=== PATIENT | female | born 1995 | race Caucasian/White ===

== ENCOUNTER 2016-12-23 03:28 | Emergency (ER) | payer OTHER ==
[~2016-12-23] VITALS: Ht 149.8 cm
[~2016-12-23 03:28] MED LIST: ATIVAN1 MG PO; BIRTH CONTROL1 EAC1; ROXICET ORAL SOL5 ML PO; ZOFRAN4 MG PO
[2016-12-23] MEDS ORDERED: CELEXA10 MG PO (03:43)
[2016-12-23] MEDS ORDERED: SEASONIQUE1 TAB PO (03:44)
[2016-12-23 04:07] LABS: BASO % 0.6 % (0.0-1.0); EOS # 0.1 10*3/uL (0.0-0.4); EOS % 1.4 % (1.0-4.0); HEMATOCRIT 47.8 % (37.0-47.0); HEMOGLOBIN 16.8 g/dl (12.0-16.0); LYMPH # 1.1 10*3/uL (1.3-4.4); LYMPH % 16.2 % (27.0-41.0); MEAN CELL VOLUME 89.5 fl (81.0-99.0); MEAN CORPUSCULAR HGB 31.5 pg (27.0-31.0); MEAN CORPUSCULAR HGB CONC 35.1 g/dl (33.0-37.0); MEAN PLATELET VOLUME 9.6 fl (9.6-12.3); MONO # 0.9 10*3/uL (0.1-1.0); MONO % 13.8 % (3.0-9.0); NEUT # 4.5 10*3/uL (2.3-7.9); NEUT % 67.7 % (47.0-73.0); PLATELET COUNT AUTOMATED 224 10*3/uL (130-400); RED BLOOD COUNT 5.34 10*6/uL (4.10-5.10); RED CELL DISTRI WIDTH 12.7 % (0-14.5); WHITE BLOOD COUNT 6.6 10*3/uL (4.8-10.8)
[2016-12-23 04:18] LABS: BUN 5 mg/dl (7-24); CARBON DIOXIDE 21 mmol/L (21-32); CHLORIDE 111 mmol/L (98-107); EST GLOM FILT AFRICAN AMERICAN > 60 ml/min; GLUCOSE 104 mg/dL (65-99); POTASSIUM 3.4 mmol/L (3.5-5.1); SODIUM 143 mmol/L (136-145)
[2016-12-23 04:24] LABS: BILIRUBIN NEGATIVE (NEGATIVE); BLOOD NEGATIVE (NEGATIVE); CLARITY CLEAR (CLEAR); COLOR YELLOW (YELLOW); GLUCOSE NEGATIVE (NEGATIVE); KETONE NEGATIVE (NEGATIVE); LEUKO ESTERASE NEGATIVE (NEGATIVE); NITRITE NEGATIVE (NEGATIVE); PH 5.5 (5.0-9.0); PROTEIN NEGATIVE (NEGATIVE); SPECIFIC GRAVITY <= 1.005 (1.005-1.030); UROBILINOGEN 0.2 E.U./dl (0.2-1.0)
[2016-12-23] MEDS ORDERED: LOMOTIL 0.025 M1 TA1 PO ×3 (04:36→06:28)
[2016-12-23 04:38] LABS: BACTERIA TRACE; EPITHELIAL CELLS 0-2; RBC 0-2 rbc/hpf (0-2); URINE REFLEX COMMENT NO (NO); WBC 0-2 wbc/hpf (0-5)
[2016-12-23] MEDS ORDERED: ZOFRAN ODT4 MG SL (06:28)
[2016-12-23] MEDS ORDERED: ZITHROMAX250 MG PO (06:46)
== END 2016-12-23 06:58 | disposition home or self-care (01) ==
LOC: ED 03:28
PROVIDERS: Emergency Medicine Emergency Medical Services
DX: K52.9 Noninfective gastroenteritis and colitis, unspecified (principal); H66.91 Otitis media, unspecified, right ear; E86.0 Dehydration; Z88.0 Allergy status to penicillin; Z79.899 Other long term (current) drug therapy

== ENCOUNTER 2017-03-13 04:26 | Emergency (ER) | payer OTHER ==
[~2017-03-13] VITALS: Ht 180.3 cm; Wt 49.9 kg
[~2017-03-13 04:26] MED LIST changes: +CELEXA10 MG PO; +LOMOTIL 0.025 M1 TA1 PO; +SEASONIQUE1 TAB PO; +ZITHROMAX250 MG PO; +ZOFRAN ODT4 MG SL
[2017-03-13 05:18] LABS: HEMATOCRIT 45.1 % (37.0-47.0); HEMOGLOBIN 15.6 g/dl (12.0-16.0); MEAN CELL VOLUME 88.6 fl (81.0-99.0); MEAN CORPUSCULAR HGB 30.6 pg (27.0-31.0); MEAN CORPUSCULAR HGB CONC 34.6 g/dl (33.0-37.0); MEAN PLATELET VOLUME 9.4 fl (9.6-12.3); PLATELET COUNT AUTOMATED 224 10*3/uL (130-400); RED BLOOD COUNT 5.09 10*6/uL (4.10-5.10); RED CELL DISTRI WIDTH 12.4 % (0-14.5); WHITE BLOOD COUNT 3.7 10*3/uL (4.8-10.8)
[2017-03-13 05:36] LABS: ALBUMIN 3.5 gm/dl (3.1-4.5); ALKALINE PHOSPHATASE 45 U/L (45-117); B-hCG (QUALITATIVE) NEGATIVE (NEGATIVE); BILIRUBIN, TOTAL 0.3 mg/dl (0.2-1.0); BUN 7 mg/dl (7-24); C-REACTIVE PROTEIN 2.83 MG/DL (0-0.3); CARBON DIOXIDE 23 mmol/L (21-32); CHLORIDE 108 mmol/L (98-107); EST GLOM FILT AFRICAN AMERICAN > 60 ml/min; GLUCOSE 82 mg/dL (65-99); MAGNESIUM 1.7 mg/dL (1.5-2.1); POTASSIUM 3.6 mmol/L (3.5-5.1); SGOT/AST 22 IU/L (3-35); SGPT/ALT 23 U/L (12-78); SODIUM 137 mmol/L (136-145); TOTAL PROTEIN 7.2 gm/dL (6.4-8.2)
[2017-03-13 05:37] LABS: BASOPHILS 1 % (0-1); LYMPHOCYTE # 1.7 10*3/uL (1.3-4.4); MONOCYTE # 0.4 10*3/uL (0.1-1.0); NEUTROPHIL # 1.5 10*3/uL (2.3-7.9); NEUTROPHILS 41 % (47-73); PLATELET SUFFICIENCY NORMAL (NORMAL); TOTAL CELLS COUNTED 100 #CELLS
[2017-03-13 06:00] LABS: BILIRUBIN NEGATIVE (NEGATIVE); BLOOD NEGATIVE (NEGATIVE); CLARITY CLEAR (CLEAR); COLOR YELLOW (YELLOW); GLUCOSE NEGATIVE (NEGATIVE); KETONE 1+ (NEGATIVE); LEUKO ESTERASE NEGATIVE (NEGATIVE); NITRITE NEGATIVE (NEGATIVE); PROTEIN NEGATIVE (NEGATIVE); SPECIFIC GRAVITY <= 1.005 (1.005-1.030); UROBILINOGEN 0.2 E.U./dl (0.2-1.0)
[2017-03-13 06:08] LABS: EPITHELIAL CELLS 0-2; URINE REFLEX COMMENT NO (NO)
== END 2017-03-13 08:40 | disposition home or self-care (01) ==
LOC: ED 04:26
PROVIDERS: Emergency Medicine Emergency Medical Services
DX: R19.7 Diarrhea, unspecified (principal); R11.0 Nausea; R10.9 Unspecified abdominal pain; Z88.0 Allergy status to penicillin